=== PATIENT | female | born 1975 | race Caucasian/White ===

== ENCOUNTER 2022-11-07 01:04 | Day surgery (SDC) | payer OTHER, SELFPAY ==
[2022-10-25 13:44] VITALS: BMI 31.1
[2022-11-07 09:05] VITALS: BP 145/86; PULSE 63; RESP 18; TEMP 36.1; O2SAT 99
[2022-11-07] MEDS: LACTATED RINGERS 1,000 ML 150 ML IV CONT (09:21)
--- NOTE | 2022-11-07 09:51 | WPDANESEPPF ---
Anes - Initial Pre Proc Eval Procedure: Operation Date: 11/07/22 10:00 Proposed Procedures p Colonoscopy - Bony Krause MD Date/Time: 11/07/22 09:51 Surgeon: Bony Krause MD Pre Op Diagnosis: neoplasm screening Patient Data Age: 47 Gender: F Height: 1.73 m Weight: 93.9 kg Last Vital Signs Temp 97 F L 11/07/22 09:05 Pulse 63 11/07/22 09:05 Resp 18 11/07/22 09:05 BP 145/86 H 11/07/22 09:05 Pulse Ox 99 11/07/22 09:05 O2 Del Method Room Air 11/07/22 09:05 Allergies Allergy/AdvReac Type Severity Reaction Status Date / Time No Known Allergies Allergy Unknown Verified 11/07/22 09:03 Home Medications Medication Instructions Recorded Confirmed Type cetirizine 10 mg tablet (Zyrtec) 10 mg PO DAILY PRN Allergy Symptoms 08/21/20 10/25/22 History metoprolol tartrate 25 mg tablet 12.5 mg PO BID #30 tabs 08/05/22 11/07/22 Rx sertraline 100 mg tablet 100 mg PO DAILY 10/25/22 10/25/22 History Patient hx anesthesia problems: none Family hx anesthesia problems: none Results Review: All pre-operative results and documents have been reviewed as part of the pre-operative evaluation. [facility] Past Medical History Medical History Anxiety Depression Ganglion cyst OAB (overactive bladder) Urinary frequency Weight gain Surgical History Surgical History History of surgical removal of ganglion cyst Family History Family History Father Family history of heart disease in male family member before age 55 Family history of cardiovascular disease Grandparent Family history of heart disease in male family member before age 55 Diabetes mellitus Other Arthritis Breast cancer Depression Heart disease High cholesterol Hypertension Social History Social History Social History: Smoking status: Never smoker Second hand tobacco smoke exposure: No Alcohol intake: never Substance use: never Substance use type: does not use Living arrangements: with family Occupation/Education: occupation Gender identity (if verbalized by the patient): Female Sexual Orientation (if Verbalized by the Patient): Straight or Heterosexual Spiritual care concerns: No Anes - Eval Final PreProcedure Day of Procedure 11/07/22 09:51 Patient weight: obese Heart: regular rate and rhythm Lungs: clear to auscultation Airway: Mallampati scale class II Neurological: alert and oriented Last oral intake: >/= 8 hours ASA classification: II Emergent: no Anesthetic plan: proceed Anesthesia type and monitoring: general GIVS and standard monitoring Results Review: All pre-operative results and documents have been reviewed as part of the pre-operative evaluation. Informed Consent: The patient's anesthetic plan and its attendant risks and benefits were discussed with the patient/family/POA. Questions were solicited and answers provided to the satisfaction of the patient/family/POA.
--- NOTE | 2022-11-07 09:54 | PM.HPGS ---
History of Present Illness History of Present Illness Consent: Risks, benefits, and alternatives have been discussed and questions answered. Patient agrees to proceed with procedure. Chief complaint: neoplasm screening Narrative: Simi Lorenzana is a 47 year old female here for first screening colonoscopy Review of Systems Constitutional: Constitutional: Denies headache(s) and Denies weakness Eyes: Eyes: Denies blurry vision ENT: Reports Normal hearing present, Denies headache(s) and Denies neck pain Cardiovascular: Cardiovascular: Denies chest pain and Denies dyspnea Respiratory: Respiratory: Denies dyspnea Gastrointestinal: Gastrointestinal: Reports no additional gastrointestinal complaints Genitourinary: Genitourinary: Denies dysuria Musculoskeletal: Musculoskeletal: Denies neck pain Integumentary/Breasts: Skin/Breast: Denies dry skin Neurologic: Reports Normal hearing present, Denies headache(s) and Denies weakness Psychiatric: Psychiatric: Denies anxiety Endocrine: Endocrine: Denies change in body appearance Hematologic/Lymphatic: Hematologic/Lymphatic: Denies easy bleeding Allergic/Immunologic: Allergic/Immunologic: Denies urticaria PMFSH Past Medical History Medical History Anxiety Depression Ganglion cyst OAB (overactive bladder) Urinary frequency Weight gain Surgical History Surgical History History of surgical removal of ganglion cyst Family History Family History Father Family history of heart disease in male family member before age 55 Family history of cardiovascular disease Grandparent Family history of heart disease in male family member before age 55 Diabetes mellitus Other Arthritis Breast cancer Depression Heart disease High cholesterol Hypertension Social History Social History Social History: Smoking status: Never smoker Second hand tobacco smoke exposure: No Alcohol intake: never Substance use: never Substance use type: does not use Living arrangements: with family Occupation/Education: occupation Gender identity (if verbalized by the patient): Female Sexual Orientation (if Verbalized by the Patient): Straight or Heterosexual Spiritual care concerns: No Meds Home Medications and Allergies Home Medications Medication Instructions Recorded Confirmed Type cetirizine 10 mg tablet (Zyrtec) 10 mg PO DAILY PRN Allergy Symptoms 08/21/20 10/25/22 History metoprolol tartrate 25 mg tablet 12.5 mg PO BID #30 tabs 08/05/22 11/07/22 Rx sertraline 100 mg tablet 100 mg PO DAILY 10/25/22 10/25/22 History Allergies Allergy/AdvReac Type Severity Reaction Status Date / Time No Known Allergies Allergy Unknown Verified 11/07/22 09:03 Vital Signs Vital Signs - 24 hr 11/07/22 09:05 Temperature 97 F L Pulse Rate 63 Respiratory Rate 18 Blood Pressure 145/86 H Pulse Oximetry 99 Oxygen Delivery Room Air Exam Const: General: comfortable and no acute distress HENMT: Face/Nose/Sinus: Normal nares present Eyes: General: appearance normal, both eyes and all related structures Neck: Neck: no JVD Resp: Auscultation: clear to auscultation bilaterally Cardio: Rate: regular rate Rhythm: regular rhythm GI: Inspection: non-distended GI Palp: Yes Soft to palpation Skin: General skin exam: normal color Neuro: General: gait normal Speech: normal speech Extrem: General: normal to inspection Psych: Mental Status: mental status grossly normal Assessment and Plan Assessment and plan (1) Colon cancer screening: Code(s): Z12.11 - Encounter for screening for malignant neoplasm of colon Status: Acute Assessment and Plan: colonoscopy
[2022-11-07 10:13] VITALS: BP 116/70; PULSE 61; RESP 15; O2SAT 96
[2022-11-07 10:23] VITALS: BP 134/86; PULSE 56; RESP 20; O2SAT 96
[2022-11-07 10:33] VITALS: BP 138/80; PULSE 60; RESP 16; O2SAT 96
== END 2022-11-07 10:48 | disposition home or self-care (01) ==
PROVIDERS: PCP Family Medicine; Visit Provider Internal Medicine Gastroenterology
PROC: 0DJD8ZZ Inspection of Lower Intestinal Tract, Via Natural or Artificial Opening Endoscopic (ICD-10-PCS; CPT 45378; principal; 2022-11-07 10:00)
DX: Z12.11 Encounter for screening for malignant neoplasm of colon (principal); K57.30 Diverticulosis of large intestine without perforation or abscess without bleeding; K64.8 Other hemorrhoids
CPT/HCPCS: 45378; J2704; J7120

== ENCOUNTER 2024-06-26 09:15 | Outpatient (CLI) | payer OTHER, SELFPAY ==
--- NOTE | ~2024-06-26 | MM_ITS ---
EXAMINATION: MM screening emperatriz BI w princess HISTORY: Screening TECHNIQUE: Craniocaudal and mediolateral oblique 3-D tomosynthesis images were obtained and synthetic 2-D images were generated. CAD analysis was submitted and interpreted. COMPARISON: No prior mammogram is available for comparison at this institution. BREAST PARENCHYMAL COMPOSITION: Dense: The breasts are extremely dense, which lowers the sensitivity of mammography. FINDINGS: There are nodular asymmetries in the breasts bilaterally obscured by dense fibroglandular t issue. There are no suspicious calcifications or architectural distortion. IMPRESSION: 1. Bilateral nodular asymmetries. 2. Additional mammographic views and possible breast ultrasound are recommended. BI-RADS Category 0: Incomplete: Needs additional imaging evaluation. Reviewed, dictated and finalized at location B. IMPRESSION: 1. Bilateral nodular asymmetries. 2. Additional mammographic views and possible breast ultrasound are recommended . BI-RADS Category 0: Incomplete: Needs additional imaging evaluation.
--- OUTSIDE RECORDS SUMMARY | 2024-06-26 09:57 | XMS_ITS | Clinical Summary ---
Author Organization [employer] [facility] [address] [facility] [address] [place] [address] Phone Care Team Providers Care Maintenance Groundskeeper Name Role Phone Unavailable Primary Care Provider Unavailabl e Social History Tobacco Use Types Packs/Day Years Used Date Smoking Tobacco: Never Assessed Comments Unknown Sex and Gender Information Value Date Recorded Sex Assigned at Not on file Legal Sex Female 11:46 AM CDT Gender Identity Not on file Sexual Orientation Not on file Plan of Treatment Health Maintenance Due Date Last Done Comments DTAP/TDAP/TD VACCINES (1 - Tdap) 1996 HEPATITIS B VACCINES (1 of 3 - 19+ 3-dose series) 1996 HPV/Cotest (21-29) 1998 PAP SMEAR 1998 CERVICAL CANCER SCREENING 11/03/2007 HPV/Cotest (30-65) 11/03/2007 PAP SMEAR 11/03/2007 BREAST CANCER SCREENING 09/10/2020 09/11/19 20, 09/11/2019 COLORECTAL SCREENING 2022 Colorectal Cancer Screening 2022 FIT-DNA Q 3 years 2022 FIT/FOBT Q 1 year 2022 Flex Sig/CT Colonography Q 5 years 2022 INFLUENZA VACCINE (#1) 2023 HPV VACCINES Aged Out No longer eligi ble based on patient's age to complete this topic PNEUMOCOCCAL VACCINE 0-49 YEARS Aged Out No longer eligible b ased on patient's age to complete this topic Insurance [facility] [id number]
--- OUTSIDE RECORDS SUMMARY | 2024-06-26 09:57 | XMS_ITS | Referral Summary ---
Author Organization [facility] Address [address] [place] [id number] Care Team Providers Care Show Jumping Instructor Name Role Phone Britney Geller MD Primary Care Provider Allergies No known active allergies Medications sertraline (ZOLOFT) 100 mg tablet Take 100 mg by mouth daily 08/19/2019 Active oxybutynin XL (DITROPAN-XL) 10 mg 24 hr tablet Take 10 mg by mouth daily 07/11/2014 Active Active Problems No known active problems Social History Tobacco Use Types Packs/Day Years Used Date Smoking Tobacco: Never Smokeless Tobacco: Never Alcohol Use Standard Drinks/Week Comments Never 0 (1 standard drink = 0.6 oz pur e alcohol) AUDIT-C Answer Date Recorded Q1: How often do you have a drink containing alc ohol? Never 10/14/2019 Average Number of Drinks Not on file 020 Frequency of Binge Drinking Not on file 05/2019 Personal Safety Answer Date Recorded Getting School Help Needed Not on file 05/26 Comments Unknown Sex and Gender Information Value Date Recorded Sex Assigned at Not on file Legal Sex Female 4:08 AM CAR SALES REPRESENTATIVE Gender Identity Female 10/14/2019 7:37 AM CDT Sexual Orientation Straight 10/14/2019 7: 37 AM CDT Last Filed Vital Signs Vital Sign Reading Time Taken Comments Blood Pressure 118/82 02/16/2020 10:05 AM CAR SALES REPRESENTATIVE Pulse 68 02/16/2020 10:05 AM CAR SALES REPRESENTATIVE Temperature 36.9 C (98.4 F) 02/16/2020 10:05 AM CAR SALES REPRESENTATIVE Respiratory Rate 16 02/16/2020 10:05 AM CAR SALES REPRESENTATIVE Oxygen Saturation 97% 02/16/2020 10:05 AM CAR SALES REPRESENTATIVE Inhaled Oxygen Concentration - - Weight 86.2 kg (190 lb) 04/13/2020 9:22 AM CAR SALES REPRESENTATIVE Height 172.7 cm (5' 8 ) 04/13/2020 9:22 AM CAR SALES REPRESENTATIVE Body Mass Index 28.89 04/13/2020 9:22 AM CAR SALES REPRESENTATIVE Plan of Treatment Not on file Procedures Procedure Name Priority Date/Time Associated Diagnosis Comments DIAGNOSTIC MAMMOGRAM BILATERAL W SILAS Schedule Routine, Read Routine (OP Routine) 10/07/2021 3:25 PM CDT Nipple discharge from Last 3 Months or Most Recently Relevant to Health Maintenance Results * Diagnostic Mammogram Bilateral W Silas (10/07/2021 3:25 PM CDT) Anatomical Region Laterality Modality Breast Bilateral Mammography 10/07/2021 4:10 PM CDT Impressions 10/07/2021 4:10 PM CDT 1. No evidence of malignancy in either breast. 2. No mammographic or sonographic correlate to explain patient's left nipple discharge. In the absence of imaging findings, any decision for further intervention should be based on the clinical assessment. OVERALL FINAL ASSESSMENT: BI-RADS Category 1: Negative. RECOMMENDATION: Annual screening mammography is recommended. If clinical concern persists, further evaluation with MRI could be obtained. Electronically signed by: Susan Guevara M.D. Narrative 10/07/2021 4:10 PM CDT EXAMINATION: BILATERAL DIGITAL DIAGNOSTIC MAMMOGRAM INCLUDING CAD AND BILATERAL DIGITAL BREAST TOMOSYNTHESIS; LEFT BREAST SONOGRAM HISTORY: 45-year-old woman with history of nonspontaneous the LEFT nipple discharge after mammograms for the past several years. The patient states that she has bloody discharge for a few days after an then it turns clear. Nonspontaneous clear nipple discharge was able to be expressed by the breast surgeon today on clinical exam. COMPARISON: 09/21/2020, 04/13/2020 and 09/11/2019 TECHNIQUE: Full field digital mammographic views of BOTH breasts were performed, including computer aided detection (CAD) and BILATERAL digital breast tomosynthesis (DBT). Directed ultrasound evaluation of the LEFT breast was performed. BREAST PARENCHYMAL COMPOSITION: The breasts are heterogenously dense, which may obscure small masses. MAMMOGRAM FINDINGS: There is no new suspicious abnormality in either breast. The mammographic appearance of the bilateral breasts appears stable with comparisons. SONOGRAM FINDINGS: Targeted sonographic images were obtained in the LEFT subareolar breast which demonstrate benign-appearing ducts without dilation or suspicious intraductal mass Procedure Note Susan Guevara MD - 10/07/2021 EXAMINATION: BILATERAL DIGITAL DIAGNOSTIC MAMMOGRAM INCLUDING CAD AND BILATERAL DIGITAL BREAST TOMOSYNTHESIS; LEFT BREAST SONOGRAM HISTORY: 45-year-old woman with history of nonspontaneous the LEFT nipple discharge after mammograms for the past several years. The patient states that she has bloody discharge for a few days after an then it turns clear. Nonspontaneous clear nipple discharge was able to be expressed by the breast surgeon today on clinical exam. COMPARISON: 09/21/2020, 04/13/2020 and 09/11/2019 TECHNIQUE: Full field digital mammographic views of BOTH breasts were performed, including computer aided detection (CAD) and BILATERAL digital breast tomosynthesis (DBT). Directed ultrasound evaluation of the LEFT breast was performed. BREAST PARENCHYMAL COMPOSITION: The breasts are heterogenously dense, which may obscure small masses. MAMMOGRAM FINDINGS: There is no new suspicious abnormality in either breast. The mammographic appearance of the bilateral breasts appears stable with comparisons. SONOGRAM FINDINGS: Targeted sonographic images were obtained in the LEFT subareolar breast which demonstrate benign-appearing ducts without dilation or suspicious intraductal mass IMPRESSION: 1. No evidence of malignancy in either breast. 2. No mammographic or sonographic correlate to explain patient's left nipple discharge. In the absence of imaging findings, any decision for further intervention should be based on the clinical assessment. OVERALL FINAL ASSESSMENT: BI-RADS Category 1: Negative. RECOMMENDATION: Annual screening mammography is recommended. If clinical concern persists, further evaluation with MRI could be obtained. Electronically signed by: Susan Guevara M.D. Prerna Gan MD PhD IMG MAMMO PROCEDURES Final Result from Last 3 Months or Most Recently Relevant to Health Maintenance Insurance [employer] [place] [address] [employer] CIGNA OPEN ACCESS CIGNA OPEN ACCESS Care Teams Show Jumping Instructor Relationship Specialty Start Date End Date Britney Geller MD [address] [facility] [address] [place] [address] PCP - General Family Medicine 09/26/19
--- OUTSIDE RECORDS SUMMARY | 2024-06-26 09:58 | XMS_ITS | Clinical Summary ---
Author Organization [email or web address] Address [address] [place] [address] Care Team Providers Care Supervisor [employer] Name Role Phone Britney Geller MD Primary Care Provider + Source Comments [email or web address],non-owned Affiliates and Associated Physician Practices is amultiple site organization consisting of ambulatory clinics and hospital sitesin [place], [place], [place] and [place]. This disclosure is being madepursuant to the Care Everywhere program and may not contain all information available regarding this patient. Last updated 17.[email or web address] Allergies No known active allergies Medications * Be aware that medications may not be up to date on this document. Alwaysverify current medications with the patient. Sertraline HCl (ZOLOFT PO) Active OXYBUTYNIN CHLORIDE PO Active Social History Tobacco Use Types Packs/Day Years Used Date Smoking Tobacco: Never Smokeless Tobacco: Never Comments Unknown Sex and Gender Information Value Date Recorded Sex Assigned at Not on file Legal Sex Female 8:09 AM CDT Gender Identity Not on file Sexual Orientation Not on file Last Filed Vital Signs Vital Sign Reading Time Taken Comments Blood Pressure 108/80 06/05/2017 10:04 AM CDT Pulse 72 06/05/2017 10:04 AM CDT Temperature 36.8 C (98.2 F) 06/05/2017 10:04 AM CDT Respiratory Rate 18 06/05/2017 10:04 AM CDT Oxygen Saturation 98% 06/05/2017 10:04 AM CDT Inhaled Oxygen Concentration - - Weight 85.7 kg (189 lb) 06/05/2017 10:04 AM CDT Height 170.2 cm (5' 7 ) 06/05/2017 10:04 AM CDT Body Mass Index 29.6 06/05/2017 10:04 AM CDT Plan of Treatment Health Maintenance Due Date Last Done Comments COLOGUARD (AGES 45-75) - COL ON CA SCREENING 1977 COLON MONITORING 1977 COLONOSCOPY - COLON CA SCREENING 1977 CT COLONOGRAPHY - COLON CA SCREENING 1977 Colorectal Cancer Screening 1977 FIT - COLON CA SCREENING 1977 FLEX SIG - COLON CA SCREENING 1977 LIPID TESTING 1977 MAMMOGRAM 1977 PAP SMEAR 1977 HIV SCREENING 1992 HEPATITIS C SCREENING 10/29/1995 DTAP/TDAP/TD VACCINES (1 - Tdap) 1996 HEPATITIS B VACCINE (1 of 3 - 19+ 3-dose series) 1996 COVID-19 VACCINE (1 - 2023-2 5 season) 2023 DEPRESSION SCREENING 03/13/2024 INFLUENZA VACCINE (Season Ended) 2024 ZOSTER VACCINE (1 of 2) 11/03/2027 HIB VACCINE Aged Out No longer eligi ble based on patient's age to complete this topic HPV VACCINE Aged Out No longer eligi ble based on patient's age to complete this topic MENINGOCOCCAL (Group B) VACC INE SHARED DECISION-MAKING Aged Out No longer eligibl e based on patient's age to complete this topic MENINGOCOCCAL GROUPS A/C/Y/W VACCINE Aged Out No longer eligible b ased on patient's age to complete this topic PNEUMOCOCCAL VACCINE Aged Out No long er eligible based on patient's age to complete this topic [place] [id number] [employer] Care Teams Supervisor Natural Gas Plant Relationship Specialty Start Date End Date Britney Geller MD [address] [facility] [address] [place] [address] PCP - General Family Medicine 06/05/17
--- OUTSIDE RECORDS SUMMARY | 2024-06-26 09:58 | XMS_ITS | Clinical Summary ---
Author Organization [facility] Address [address] [place] [id number] Care Team Providers Care Senior Quality Control Technician Name Role Phone Britney Geller MD Primary Care Provider Allergies No known active allergies Medications sertraline (ZOLOFT) 100 mg tablet Take 100 mg by mouth daily 08/19/2019 Active oxybutynin XL (DITROPAN-XL) 10 mg 24 hr tablet Take 10 mg by mouth daily 07/11/2014 Active Active Problems No known active problems Surgical History Surgery Date Site/Laterality Comments GANGLION CYST EXCISION 03/13/1987 - 03/12/1988 Left left wrist GANGLION CYST EXCISION 03/13/1997 - 03/12/1998 Left left wrist Medical History Medical History Date Comments Depression Migraine Overweight Family History Medical History Relation Name Comments Bladder Cancer Paternal Grandmother Breast cancer Paternal Grandmother Metast atic Relation Name Status Comments Paternal Grandmother Social History Tobacco Use Types Packs/Day Years [...] on file Legal Sex Female 4:08 AM MOLD YARD WORKER Gender Identity Female 10/14/2019 7:37 AM CDT Sexual Orientation Straight 10/14/2019 7: 37 AM CDT Obstetrics History Last Filed Vital Signs Vital Sign Reading Time Taken Comments Blood Pressure 118/82 02/16/2020 10:05 AM MOLD YARD WORKER Pulse 68 02/16/2020 10:05 AM MOLD YARD WORKER Temperature 36.9 C (98.4 F) 02/16/2020 10:05 AM MOLD YARD WORKER Respiratory Rate 16 02/16/2020 10:05 AM MOLD YARD WORKER Oxygen Saturation 97% 02/16/2020 10:05 AM MOLD YARD WORKER Inhaled Oxygen Concentration - - Weight 86.2 kg (190 lb) 04/13/2020 9:22 AM MOLD YARD WORKER Height 172.7 cm (5' 8 ) 04/13/2020 9:22 AM MOLD YARD WORKER Body Mass Index 28.89 04/13/2020 9:22 AM MOLD YARD WORKER Plan of Treatment Health Maintenance Due Date Last Done Comments Cervical Cancer Screening 1977 Colon Cancer Screening-Colonoscopy 1977 Depression Screening 1977 Hepatitis C Screening 1977 DTaP/Tdap/Td Vaccine (1 - Tdap) 1988 Hepatitis B Screening 11/03/1995 Regular Well Visit/Exam 18-64 11/03/1995 Breast Cancer Screening-Mammogram 10/07/2022 10/07/2021, 09/21/2020 Influenza Vaccine (#1) 2023 9, 12/28/2016, 01/12/2016, Additional history exists HPV Vaccines Aged Out No longer eligi ble based on patient's age to complete this topic Pneumococcal vaccine <65 Aged Out No longer eligible based on patient's age to complete this topic Procedures Procedure Name Priority Date/Time Associated Diagnosis [...] Most Recently Relevant to Health Maintenance [place] [address] [employer] OPEN ACCESS [email or web address] [facility] [place] [address] [place] [address] OPEN ACCESS Care Teams Senior Quality Control Technician Relationship Specialty Start Date End Date Britney Geller MD [address] [facility] [address] [place] [address] PCP - General Family Medicine 09/26/19
== END 2024-06-26 09:16 | disposition home or self-care (01) ==
PROVIDERS: PCP Obstetrics & Gynecology Gynecology; Visit Provider Obstetrics & Gynecology Gynecology
DX: Z12.31 Encounter for screening mammogram for malignant neoplasm of breast (principal); R92.8 Other abnormal and inconclusive findings on diagnostic imaging of breast
CPT/HCPCS: 77063; 77067

== ENCOUNTER 2024-07-05 09:40 | Outpatient (CLI) | payer OTHER, SELFPAY ==
--- NOTE | ~2024-07-05 | MMUS_ITS ---
EXAMINATION: MM diagnostic emperatriz BI w princess, US breast BI complete HISTORY: Follow-up nodular breast asymmetries TECHNIQUE: Additional 3-D tomosynthesis images of the breasts were performed and synthetic 2-D images were generated. CAD analysis was submitted and interpreted. High resolution complete bilateral breas t ultrasound was performed. COMPARISON: 06/26/2024 BREAST PARENCHYMAL COMPOSITION: Dense: The breasts are heterogeneously dense, which may obscure small masses FINDINGS: MAMMOGRAPHIC FINDINGS: There are no suspicious masses, calcifications or architectural distortion in either breast to sugges t malignancy. ULTRASOUND: Limited bilateral breast ultrasound: At 1:00 near the areola there is an irregular shaped cyst measur ing 7 mm, likely benign. No other masses in either breast to suggest malignancy. IMPRESSION: 1. Probable benign irregular shaped cyst of the right breast located at 1:00 near the areola. 2. Recommend 6 month follow-up Limited right breast ultrasound BI-RADS category 3, probably benign findings. Reviewed, dictated and finalized at location A. IMPRESSION: 1. Probable benign irregular shaped cyst of the right breast located at 1:00 ne ar the areola. 2. Recommend 6 month follow-up Limited right breast ultrasound BI-RADS category 3, probably benign findings.
--- OUTSIDE RECORDS SUMMARY | 2024-07-05 09:51 | XMS_ITS | Referral Summary ---
Author Organization [facility] Address [address] [place] [phone] Care Team Providers Care Lbd Teacher Name Role Phone Britney Geller MD Primary [...] on file Legal Sex Female 4:08 AM HOSPITAL PERSONNEL DIRECTOR Gender Identity Female 10/14/2019 7:37 AM CDT Sexual Orientation Straight 10/14/2019 7: 37 AM CDT Last Filed Vital Signs Vital Sign Reading Time Taken Comments Blood Pressure 118/82 02/16/2020 10:05 AM HOSPITAL PERSONNEL DIRECTOR Pulse 68 02/16/2020 10:05 AM HOSPITAL PERSONNEL DIRECTOR Temperature 36.9 C (98.4 F) 02/16/2020 10:05 AM HOSPITAL PERSONNEL DIRECTOR Respiratory Rate 16 02/16/2020 10:05 AM HOSPITAL PERSONNEL DIRECTOR Oxygen Saturation 97% 02/16/2020 10:05 AM HOSPITAL PERSONNEL DIRECTOR Inhaled Oxygen Concentration - - Weight 86.2 kg (190 lb) 04/13/2020 9:22 AM HOSPITAL PERSONNEL DIRECTOR Height 172.7 cm (5' 8 ) 04/13/2020 9:22 AM HOSPITAL PERSONNEL DIRECTOR Body Mass Index 28.89 04/13/2020 9:22 AM HOSPITAL PERSONNEL DIRECTOR Plan of Treatment Not on file Procedures [...] Insurance [employer] [place] [address] CIGNA CIGNA OPEN ACCESS [employer] OPEN ACCESS Care Teams Lbd Teacher Relationship Specialty Start Date End Date Britney Geller MD [address] [facility] [address] [place] [address] PCP - General Family Medicine 09/26/19
--- OUTSIDE RECORDS SUMMARY | 2024-07-05 09:52 | XMS_ITS | Clinical Summary ---
Author Organization [facility] Address [address] [place] [id number] Care Team Providers Care Dixonac Operator Name Role Phone Britney Geller MD Primary [...] on file Legal Sex Female 4:08 AM RADIOLOGICAL TECHNICIAN Gender Identity Female 10/14/2019 7:37 AM CDT Sexual Orientation Straight 10/14/2019 7: 37 AM CDT Obstetrics History Last Filed Vital Signs Vital Sign Reading Time Taken Comments Blood Pressure 118/82 02/16/2020 10:05 AM RADIOLOGICAL TECHNICIAN Pulse 68 02/16/2020 10:05 AM RADIOLOGICAL TECHNICIAN Temperature 36.9 C (98.4 F) 02/16/2020 10:05 AM RADIOLOGICAL TECHNICIAN Respiratory Rate 16 02/16/2020 10:05 AM RADIOLOGICAL TECHNICIAN Oxygen Saturation 97% 02/16/2020 10:05 AM RADIOLOGICAL TECHNICIAN Inhaled Oxygen Concentration - - Weight 86.2 kg (190 lb) 04/13/2020 9:22 AM RADIOLOGICAL TECHNICIAN Height 172.7 cm (5' 8 ) 04/13/2020 9:22 AM RADIOLOGICAL TECHNICIAN Body Mass Index 28.89 04/13/2020 9:22 AM RADIOLOGICAL TECHNICIAN Plan of Treatment Health Maintenance Due Date [...] Recently Relevant to [place] [address] [email or web address] OPEN ACCESS [employer] [facility] [place] [address] [place] [address] OPEN ACCESS Care Teams Dixonac Operator Relationship Specialty Start Date End Date Britney Geller MD [address] [facility] [address] [place] [address] PCP - General Family Medicine 09/26/19
--- OUTSIDE RECORDS SUMMARY | 2024-07-05 09:52 | XMS_ITS | Clinical Summary ---
Author Organization [facility] Address [address] [facility] [place] [address] Care Team Providers Care Filter Assembler Name Role Phone Britney Geller MD Primary Care Provider + Source Comments [facility],non-owned Affiliates and Associated Physician Practices is amultiple site organization consisting of ambulatory clinics and hospital sitesin [place], [place], [place]. This disclosure is being madepursuant to the Care Everywhere program and may not contain all information available regarding this patient. Last updated 17.[facility] Allergies No known active allergies Medications * [...] complete this topic [place] [address] [employer] Care Teams Filter Assembler Relationship Specialty Start Date End Date Britney Geller MD [address] [facility] [address] [place] [address] PCP - General Family Medicine 06/05/17
--- OUTSIDE RECORDS SUMMARY | 2024-07-05 09:52 | XMS_ITS | Clinical Summary ---
Author Organization [facility] [address] [facility] [address] [facility] 3rd [place] [address] Phone Care Team Providers Care Cylinder Block Hole Reliner Name Role Phone Unavailable Primary Care Provider [...] 19+ 3-dose series) 1996 HPV/Cotest (21-29) 1998 CERVICAL CANCER SCREENING 11/03/2007 HPV/Cotest (30-65) 11/03/2007 PAP SMEAR 11/03/2007 BREAST CANCER SCREENING 09/10/2020 09/11/19 20, 09/11/2019 COLORECTAL SCREENING 2022 Colorectal Cancer Screening 2022 FIT-DNA Q 3 years 2022 FIT/FOBT Q 1 year 2022 Flex Sig/CT Colonography Q 5 years 2022 INFLUENZA VACCINE (#1) 2023 HPV VACCINES Aged Out No longer eligi ble based on patient's age to complete this topic Insurance [facility] [id number] [place] [id number]
== END 2024-07-05 09:41 | disposition home or self-care (01) ==
LOC: CHSIMG 09:42
PROVIDERS: PCP Obstetrics & Gynecology Gynecology; Visit Provider Obstetrics & Gynecology Gynecology
DX: R92.8 Other abnormal and inconclusive findings on diagnostic imaging of breast (principal)
CPT/HCPCS: 76641; 77062; 77066; G0279

== ENCOUNTER 2025-01-06 08:57 | Outpatient (CLI) | payer OTHER, SELFPAY ==
--- NOTE | ~2025-01-06 | US_ITS ---
US breast RT limited INDICATION: Follow-up right breast mass seen on prior ultrasound at 1:00 TECHNIQUE: Dedicated Limited right breast ultrasound COMPARISON: 07/05/2024 FINDINGS: The right breast is/are composed of normal heterogeneous echotexture without focal solid or cystic mass. IMPRESSION: 1: Normal limited right breast ultrasound. BI-RADS CATEGORY 1 - NEGATIVE Reviewed, dictated and finalized at location B.
--- OUTSIDE RECORDS SUMMARY | 2025-01-06 09:37 | XMS_ITS | Clinical Summary ---
Author Organization [employer] [address] Address [address] [facility] 3rd [place] [address] Phone Care Team Providers Care Criminalist Name Role Phone Unavailable Primary Care Provider [...] PAP SMEAR 11/03/2007 BREAST CANCER SCREENING 09/10/2020 09/11/2019, 09/10 COLORECTAL SCREENING 2022 Colorectal Cancer Screening 2022 FIT-DNA Q 3 years 2022 FIT/FOBT Q 1 year 2022 Flex Sig/CT Colonography Q 5 years 2022 INFLUENZA VACCINE (#1) 2024 Insurance [facility] [employer] PPO [id number]
--- OUTSIDE RECORDS SUMMARY | 2025-01-06 09:37 | XMS_ITS | Clinical Summary ---
Author Organization [facility] Address [address] [facility] [place] [address] Care Team Providers Care Hardware Assembler Name Role Phone Britney Geller MD Primary Care Provider + Source Comments [facility],non-owned Affiliates and Associated Physician Practices is amultiple site organization consisting of ambulatory clinics and hospital sitesin [place], [place], [place] and [place]. This disclosure is being madepursuant to the Care Everywhere program and may not contain all information available regarding this patient. Last updated 17.[facility] Allergies No known active allergies Medications * [...] 10:04 AM CDT Height 170.2 cm (5' 7) 06/05/2017 10:04 AM CDT Body Mass Index [...] SCREENING 1977 LIPID TESTING 1977 MAMMOGRAM 1977 HIV SCREENING 1992 HEPATITIS C SCREENING 10/29/1995 DTAP/TDAP/TD VACCINES (1 - Tdap) 1996 HEPATITIS B VACCINE (1 of 3 - 19+ 3-dose series) 1996 PAP SMEAR 1998 DEPRESSION SCREENING 03/13/2024 COVID-19 VACCINE (1 - 2023-2 5 season) 2024 INFLUENZA VACCINE (#1) 2024 ZOSTER VACCINE (1 of 2) 11/03/2027 [...] complete this topic [place] [id number] [employer] Care Teams Hardware Assembler Relationship Specialty Start Date End Date Britney Geller MD [address] [facility] [address] [place] [address] PCP - General Family Medicine 06/05/17
--- OUTSIDE RECORDS SUMMARY | 2025-01-06 09:37 | XMS_ITS | Clinical Summary ---
Author Organization [facility] Address [address] [place] [phone] Care Team Providers Care Side Splitter Name Role Phone Britney Geller MD Primary [...] on file Legal Sex Female 4:08 AM DINING ROOM SERVER Gender Identity Female 10/14/2019 7:37 AM CDT Sexual Orientation Straight 10/14/2019 7: 37 AM CDT Obstetrics History Last Filed Vital Signs Vital Sign Reading Time Taken Comments Blood Pressure 118/82 02/16/2020 10:05 AM DINING ROOM SERVER Pulse 68 02/16/2020 10:05 AM DINING ROOM SERVER Temperature 36.9 C (98.4 F) 02/16/2020 10:05 AM DINING ROOM SERVER Respiratory Rate 16 02/16/2020 10:05 AM DINING ROOM SERVER Oxygen Saturation 97% 02/16/2020 10:05 AM DINING ROOM SERVER Inhaled Oxygen Concentration - - Weight 86.2 kg (190 lb) 04/13/2020 9:22 AM DINING ROOM SERVER Height 172.7 cm (5' 8) 04/13/2020 9:22 AM DINING ROOM SERVER Body Mass Index 28.89 04/13/2020 9:22 AM DINING ROOM SERVER Plan of Treatment Not on file [place] [address] [employer] OPEN ACCESS Member Subscriber Plan / Payer (Ef fective 2019-Present) Name:Simi Lorenzana Relation to Subscriber:Self Name:Simi Lorenzana Payer ID:[id number] ([facility]) Type:CIGNA HMO/PPO Address: [facility] [address] [place] [address] [place] [address] [employer] [facility] Care Teams Side Splitter Relationship Specialty Start Date End Date Britney Geller MD [address] [facility] [address] [place] [address] PCP - General Family Medicine 09/26/19
== END 2025-01-06 08:58 | disposition home or self-care (01) ==
LOC: CHSIMG 08:59
PROVIDERS: PCP Family Medicine; Visit Provider Obstetrics & Gynecology Gynecology
DX: N60.01 Solitary cyst of right breast (principal)
CPT/HCPCS: 76642